=== PATIENT | male | born 2000 | race Caucasian/White ===

== ENCOUNTER 2022-09-05 23:57 | Emergency (ER) | payer SELFPAY ==
[~2022-09-05] VITALS: Ht 177.8 cm; Wt 65.8 kg
--- NOTE | 2022-09-06 00:01 | NUR ---
FERNY PATIENT ARRIVED TO ED VIA POV. PATIENT WAS BUCKED OFF HORSE AND LANDED DIRECTLY ON BACK. NEGATIVE LOC. LARGE HEMATOMA TO LOWER BACK AND C/O LEFT HIP PAIN
[2022-09-06] MEDS ORDERED: NS 1000ML 1,000 ML IV STA (00:04)
[2022-09-06] MEDS ORDERED: SUBLIMAZE IM STA (00:04)
[2022-09-06 00:05] VITALS: BP 109/47; PULSE 58; RESP 18; TEMP 97.9; O2SAT 100
[2022-09-06] MEDS ORDERED: SUBLIMAZE ONE (00:14)
[2022-09-06] MEDS ORDERED: NS 1000ML 1,000 ML ONE (00:14)
--- NOTE | 2022-09-06 00:14 | NUR ---
DR NEISHA DRIVER ACCEPTED PATIENT TO [facility] ED, [place], [place]
[2022-09-06 00:18] LABS: BASOPHIL % 0.4 % (0.0-0.2); EOSINOPHIL # 0.1 10^3/uL (0.0-0.2); EOSINOPHIL % 0.9 % (0.0-5.0); LYMPHOCYTES # 1.86 10^3/uL1 (1.0-4.8); LYMPHOCYTES % 16.3 % (24.0-44.0); MEAN CORP HGB 30.7 pg (26-34); MONOCYTES # 0.8 10^3/uL (0.3-0.8); MONOCYTES % 6.7 % (5.0-12.0); NEUTROPHIL # 8.6 10^3/uL (1.8-7.7); NEUTROPHILS % 75.5 % (41.0-85.0); PLATELET COUNT 246 10^3/uL (150-400)
--- NOTE | 2022-09-06 00:19 | NUR ---
TO CT PATIENT TO CT VIA STRETCHER
--- NOTE | 2022-09-06 00:30 | NUR ---
BACK FROM CT PATIENT BACK FROM CT, BROTHER AT BEDSIDE. NO NEEDS VOICED BY PATIENT OR BROTHER
[2022-09-06 00:33] LABS: CARBON DIOXIDE 28.2 mmol/L (20.0-32)
[2022-09-06] MEDS ORDERED: TRANEXAMIC ACID 1,000 MG in NS 100ML 100 ML IV STA (00:33)
[2022-09-06] MEDS ORDERED: NS 100ML 100 ML IV ONE (00:34)
--- NOTE | 2022-09-06 00:34 | ER.PDOC ---
General Chief Complaint: Trauma Stated Complaint: HIP & LOWER BACK PAIN Time seen by MD: 00:23 Source: patient Exam Limitations: no limitations History of Present Illness Initial Comments Lower back and left hip pain/injury status post fall from a horse at the [place].. Patient was bucked off the horse. No headache or loss of consciousness. No neck pain. No numbness or tingling of lower extremities. No urinary or fecal incontinence. Occurred: just prior to arrival Severity: severe Injuries/Pain Location: back, pelvis Context: Other (Thrown off a horse) Loss of Consciousness: No Loss of Consciousness Associated Symptoms: denies symptoms Allergies: Coded Allergies: No Known Allergies (Unverified , 09/06/22) Past Medical History Medical History: no pertinent history Surgical History: no surgical history Family History Significant Family History: no pertinent family hx Social History Alcohol Use: occassionally Drug Use: none Review of Systems Constitutional: no symptoms reported Respiratory: no symptoms reported Cardiovascular: no symptoms reported Gastrointestinal: no symptoms reported Musculoskeletal: see HPI All Other Systems: Reviewed and Negative Physical Exam General Appearance: No Apparent Distress, WD/WN Head: No Evidence of Injury Eyes: bilateral eye normal inspection Ears, Nose, Mouth, Throat: Hearing Grossly Normal, No Evidence of ENT Injury, No Dental Injury Neck: Non-Tender, Normal Alignment, Nexus criteria neg, Normal Inspection Cardiovascular/Respiratory: Regular Rate, Rhythm, No M/R/G, Normal Peripheral Pulses, No JVD, Normal Breath Sounds, No Respiratory Distress Gastrointestinal: Normal Bowel Sounds, No Organomegaly, No Pulsatile Mass, Non Tender, Soft Back: Vertebral Tenderness (L-spine with a huge hematoma) Extremities: Pain With Movement (Left hip) Neurologic/Psychiatric: mat puncher II-XII NML as Tested, No Motor/Sensory Deficits, Alert, Normal Mood/Affect, Oriented x 3 Skin: Normal Color, Warm/Dry [place] Coma Score Best Eye Response: (4) Open Spontaneously Best Verbal Response: (5) Oriented Best Motor Response: (6) Obeys Commands Results/Orders Results/Orders Orders - FAITH MONROE MD Ct Lumbar Wo Contrast (09/06/22 00:04) Ct Pelvis Wo Iv Contrast (09/06/22 00:04) 0.9 % Sodium Chloride (Ns 1000ml) (09/06/22 00:04) Fentanyl Citrate/Pf (Sublimaze) (09/06/22 00:04) Cbc With Auto Diff (09/06/22 00:04) Comprehensive Metabolic Panel (09/06/22 00:04) PT (09/06/22 00:04) Partial Thromboplastin Time. (09/06/22 00:04) 0.9 % Sodium Chloride (Ns 1000ml) (09/06/22 00:14) Fentanyl Citrate/Pf (Sublimaze) (09/06/22 00:14) Tranexamic Acid (Tranexamic Acid) (09/06/22 00:33) 0.9 % Sodium Chloride (Ns 100ml) (09/06/22 00:34) Vital Signs Date Time Temp Pulse Resp B/P (MAP) Pulse Ox O2 Delivery O2 Flow Rate FiO2 09/06/22 00:10 18 09/06/22 00:05 97.9 58 18 09/06/22 00:05 97.9 58 18 109/47 (67) 100 Room Air* 0 21 09/06/22 00:05 97.9 58 18 100 Administered Medications Medications (Trade) Dose Ordered Sig/Dalia Route PRN Reason Start Time Stop Time Status Last Admin Dose Admin Fentanyl Citrate (Sublimaze) 100 mcg STAT STAT IM 09/06/22 00:04 09/06/22 00:07 DC 09/06/22 00:19 100 MCG Sodium Chloride 1,000 ml @ 1,200 mls/hr Q50M STAT IV 09/06/22 00:04 09/06/22 00:53 DC 09/06/22 00:18 1,200 MLS/HR Tranexamic Acid 1000 mg/Sodium Chloride 110 ml @ 200 mls/hr STAT STAT IV 09/06/22 00:33 09/06/22 01:05 UNV 09/06/22 01:25 200 MLS/HR Laboratory Tests Test 09/06/22 00:13 White Blood Count 11.4 10^3/uL (4.5-11.0) H Red Blood Count 4.75 10^6/uL (4.50-5.90) Hemoglobin 14.6 g/dL (13.9-16.3) Hematocrit 41.9 % (37.0-53.0) Mean Corpuscular Volume 88.2 fL (78-100) Mean Corpuscular Hemoglobin 30.7 pg (26-34) Mean Corpuscular Hemoglobin Concent 34.8 g/dL (33-36.5) Red Cell Distribution Width 13.0 % (11.5-14.5) Platelet Count 246 10^3/uL (150-400) Mean Platelet Volume 10.5 fL (7.8-11.0) Neutrophils (%) (Auto) 75.5 % (41.0-85.0) Lymphocytes (%) (Auto) 16.3 % (24.0-44.0) L Monocytes (%) (Auto) 6.7 % (5.0-12.0) Neutrophils # (Auto) 8.6 10^3/uL (1.8-7.7) H Lymphocytes # (Auto) 1.86 10^3/uL1 (1.0-4.8) Monocytes # (Auto) 0.8 10^3/uL (0.3-0.8) Absolute Immature Granulocyte (auto 0.02 10^3 u/L (0-2) Absolute Eosinophils (auto) 0.1 10^3/uL (0.0-0.2) Immature Granulocytes % 0.20 % (0.00-0.50) Eosinophils % 0.9 % (0.0-5.0) Basophils % 0.4 % (0.0-0.2) H Basophils # 0.0 10^3/uL (0.0-0.1) Prothrombin Time 11.7 SEC (9.7-11.6) H INR 1.1 Activated Partial Thromboplast Time 25.0 SEC (22.5-33.1) Sodium Level 140 mmol/L (132-145) Potassium Level 4.5 mmol/L (3.6-5.2) Chloride Level 101.0 mmol/L (96-109) Carbon Dioxide Level 28.2 mmol/L (20.0-32) Anion Gap 15.3 Blood Urea Nitrogen 20 mg/dL (7-18) H Creatinine 1.40 mg/dL (0.59-1.40) Estimated GFR () 77.4 (>/=60) Est GFR (CKD-EPI)(Non-Afr Croatian) 64.0 (>/=60) BUN/Creatinine Ratio 14.0 (10.0-20.0) Glucose Level 105 mg/dL (74-106) Calcium Level 9.6 mg/dL (8.4-10.5) Total Bilirubin 1.0 mg/dL (0.2-1.0) Aspartate Amino Transferase (AST) 23 U/L (0-35) Alanine Aminotransferase (ALT) 24 U/L (12-78) Alkaline Phosphatase 58 U/L (50-136) Total Protein 7.5 g/dL (6.4-8.2) Albumin 4.6 g/dL (3.4-5.0) Globulin 2.9 Albumin/Globulin Ratio 1.586 Progress Progress WBC 11.4, rest of CBC normal. Patient received IV fluids, TXA and morphine. Pain is better. CT L spine: No acute fracture. Heterogeneous mass with surrounding soft tissue swelling in the dorsal subcutaneous tissues at the lumbosacral junction which may represent a hematoma in the setting of trauma. CT pelvis: No acute fracture. Partially visualized mass in the dorsal subcutaneous tissues at the level of the lumbosacral junction with surrounding soft tissue swelling which may represent a hematoma in the setting of trauma. See separately dictated lumbar spine CT for details. ER DEPART Departure Time of Disposition: :29 Disposition: 02 SHORT TERM HOSPITAL Impression: Primary Impression: Traumatic hematoma of lower back Additional Impressions: Lower back injury Injury of hip, left Fall from horse Condition: Improved Referrals: PCP,UNKNOWN (PCP) PRIMARY CARE PROVIDER Comments Transfer to [facility] ED for Dr. Montiel Duration or Time Spent with Pa: 30 min Critical Care Note Total Time (mins): 60 Problem Qualifiers Primary Impression: Traumatic hematoma of lower back Encounter type: initial encounter Qualified Codes: S30.0XXA - Contusion of lower back and pelvis, initial encounter Additional Impressions: Lower back injury Encounter type: initial encounter Qualified Codes: S39.92XA - Unspecified injury of lower back, initial encounter Injury of hip, left Encounter type: initial encounter Qualified Codes: S79.912A - Unspecified injury of left hip, initial encounter Fall from horse Encounter type: initial encounter Qualified Codes: V80.010A - Animal-rider injured by fall from or being thrown from horse in noncollision accident, initial encounter FAITH MONROE MD Sep 06, 2022 00:33
--- NOTE | 2022-09-06 00:35 | NUR ---
DISPATCH CALLED DISPATCH CALLED FOR TRANSFER TO [facility]
--- NOTE | 2022-09-06 00:54 | DIREP ---
PROCEDURE: CT SPINE LUMBAR W/O TECHNIQUE:Axial cuts were obtained through the lumbar spine. The images were viewed at bone settings. COMPARISON:[facility], CT, CT PELVIS W/O, 09/06/2022, 00:31 AM. INDICATIONS:Injury FINDINGS: ALIGNMENT:Normal. VERTEBRAE:Normal. PARASPINAL AREA:Heterogeneous mass with surrounding soft tissue swelling in the dorsal subcutaneous tissues from the level of L3 through S2 measuring 4.6 x 9.6 x 11.8 cm. OTHER:No additional findings. LUMBAR DISC LEVELS T12-L1:Normal. L1-L2:Normal. L2-L3:Normal. L3-L4:Normal. L4-L5:Normal. L5-S1:Normal. CONCLUSION:No acute fracture. Heterogeneous mass with surrounding soft tissue swelling in the dorsal subcutaneous tissues at the lumbosacral junction which may represent a hematoma in the setting of trauma. Dictated by: Paulo Diaz M.D. on 09/06/2022 at 00:48 AM
--- NOTE | 2022-09-06 00:56 | DIREP ---
PROCEDURE:CT PELVIS W/O COMPARISON:None. INDICATIONS:Left hip injury TECHNIQUE:Axial images were created through the pelvis without intravenous contrast material. No oral contrast was administered. Sagittal and coronal reconstructions were performed from source images. FINDINGS: AORTA/VASCULAR:Normal. No aneurysm. RETROPERITONEUM:Normal. No mass or adenopathy. BOWEL/MESENTERY:Normal. There is no intestinal obstruction, free fluid, free air or mesenteric inflammatory changes. ABDOMINAL WALL:Partially visualized mass in the dorsal subcutaneous tissues at the level of the lumbosacral junction with surrounding soft tissue swelling. See separately dictated lumbar spine CT for details. PELVIC ORGANS:Normal. No visible mass. Pelvic organs appropriate for patient age. BONES:Normal for age. No bony lesion or acute fracture. OTHER:Negative. CONCLUSION: No acute fracture. Partially visualized mass in the dorsal subcutaneous tissues at the level of the lumbosacral junction with surrounding soft tissue swelling which may represent a hematoma in the setting of trauma. See separately dictated lumbar spine CT for details. Dictated by: Paulo Diaz M.D. On 09/06/2022 at 00:53 AM
[2022-09-06 01:30] VITALS: BP 110/52; PULSE 60; RESP 16; TEMP 97.9; O2SAT 100
--- NOTE | 2022-09-06 01:30 | NUR ---
LIFESTAR LIFESTAR AT BEDSIDE
--- NOTE | 2022-09-06 02:14 | NUR ---
REPORT TO [facility] REPORT GIVEN TO LISSET AQUINO RN
== END 2022-09-06 01:30 | disposition short-term general hospital (02) ==
LOC: ER 23:57
DX: S30.0XXA Contusion of lower back and pelvis, initial encounter (principal); S79.912A Unspecified injury of left hip, initial encounter; V80.010A Animal-rider injured by fall from or being thrown from horse in noncollision accident, initial encounter; Y93.52 Activity, horseback riding; Y92.89 Other specified places as the place of occurrence of the external cause; Y99.8 Other external cause status
CPT/HCPCS: 99285; 72192; 96365; 96361; 72131; 80053; 85025; 36415; 85610; 85730; 96372; J7030; J3010